=== PATIENT | female | born 1940 | race Two or more races ===

== ENCOUNTER 2016-06-30 07:08 | Inpatient (IN) | payer MEDICAID ==
[~2016-06-30] VITALS: Ht 157.5 cm; Wt 81.6 kg
[2016-06-30] MEDS ORDERED: IV LR 1000 ML 1,000 ML ONE (07:17)
[2016-06-30] MEDS ORDERED: CEFAZOLIN SODIUM/DEXTROSE,ISO 50 ML IV ONE (07:17)
[2016-06-30] MEDS ORDERED: NEEDLELESS EST SET LARGE BORE 1 EA INFUS.SET MC ONE (07:17)
[2016-06-30] MEDS ORDERED: IV SET PRIMARY 1 EA INFUS.SET MC ONE (07:17)
[2016-06-30] MEDS ORDERED: SECONDARY IV SET 1 EA INFUS.SET MC ONE ×2 (07:17→16:49)
[2016-06-30] MEDS ORDERED: LOSA50TA21 PO (07:29)
[2016-06-30] MEDS ORDERED: TRAM50TA2 PO (07:29)
[2016-06-30] MEDS ORDERED: FAMO40TA7 PO (07:29)
[2016-06-30] MEDS ORDERED: LOSA25TA13 PO (07:29)
[2016-06-30] MEDS ORDERED: BUPIVACAINE 0.5 % PF 150 MG/30 ML VIAL ONE (08:20)
[2016-06-30] MEDS ORDERED: BACITRACIN 50000 UNITS/VIAL ONE ×2 (08:20)
[2016-06-30] MEDS ORDERED: KETOROLAC TROMETHAMINE INJ 30 MG/ML VIAL ONE (08:20)
[2016-06-30 09:24] VITALS: BP 102/66
[2016-06-30] MEDS ORDERED: TRANEXAMIC ACID 3,000 MG in SODIUM CHLORIDE IRRIG SOLUTION 70 ML IR ONE (09:30)
[2016-06-30] MEDS ORDERED: CLINDAMYCIN 900 MG/6 ML VIAL ONE (09:57)
[2016-06-30] MEDS ORDERED: FENTANYL PF 100MCG/2ML AMPUL ONE (09:58)
[2016-06-30] MEDS ORDERED: HYDROMORPHONE INJ 2 MG/ML DISP.SYRIN ONE (09:58)
[2016-06-30] MEDS ORDERED: DULCOLAX 10 MG/SUPP.RECT RC PRN (13:00)
[2016-06-30] MEDS ORDERED: SENOKOT 8.6 MG TABLET PO PRN (13:00)
[2016-06-30] MEDS ORDERED: HYDROCODONE/APAP 5/325MG 1 EACH TABLET PO PRN (13:00)
[2016-06-30] MEDS ORDERED: COLACE 250 MG CAPSULE PO PRN (13:00)
[2016-06-30] MEDS ORDERED: AMBIEN 5 MG TABLET PO PRN (13:00)
[2016-06-30] MEDS ORDERED: TYLENOL 650 MG TABLET PO PRN (13:00)
[2016-06-30] MEDS ORDERED: ZOFRAN 4mg/2ML IV PRN (13:00)
--- NOTE | 2016-06-30 13:00 | NUR ---
MS RN RECEIVED A 75 YEAR OLD PATIENT, FROM OR, AWAKE,ALERT,ORIENTED X4,NOT IN ANY FORM OF DISTRESS, S/P RIGHT KNEE TKA, W/ DRESSING AND BANDAGE,LAMAS TO GRAVITY W/ YELLOWISH URINE OUTPUT, DENIES PAIN AT THIS TIME, WILL MONITOR PATIENT'S CONDITION.
[2016-06-30] MEDS ORDERED: ANESTHESIA TRAY IN PYXIS 1 EA TRAY MC ONE (14:08)
--- NOTE | 2016-06-30 15:00 | NUR ---
MS RN WAS SEEN BY PT, CPM ON AT THIS TIME.
[2016-06-30 16:00] VITALS: BP 101/55
[2016-06-30] MEDS ORDERED: IV SET PRIMARY PUMP SET 1 EA INFUS.SET MC ONE (16:34)
--- NOTE | 2016-06-30 17:05 | NUR ---
MS RN CPM OFF AT THIS TIME, GIVEN DILAUDID 1MG IV FOR PAIN 09/30, WILL MONITOR PATIENT.
[2016-06-30] MEDS: HYDROMORPHONE 1 MG/1 ML DISP.SYRIN IV PRN (17:30)
[2016-06-30] MEDS: IV LR 1000 ML 1,000 ML IV PRN (17:49)
[2016-06-30] MEDS: CLINDAMYCIN 900 MG in IV D5W 50 ML IV SCH (17:50)
[2016-06-30] MEDS ORDERED: FAMOTIDINE 40 MG TABLET PO SCH (18:00)
--- NOTE | 2016-06-30 18:15 | NUR ---
MS RN ON BED, NO DISTRESS NOTED,ALL NEEDS ATTENDED.
--- NOTE | 2016-06-30 19:00 | NUR ---
MS RN OPENING NOTES RECEIVED PATIENT IN BED, AWAKE/O X 4, IV SITE INTACT WITH NO S/S OF INFILTRATION NOTED. NO S/S OF BLEEDING NOTED. NO S/S OF DISTRESS, NO CHEST PAIN IN STABLE CONDITION. KEPT CLEAN DRY AND COMFORTABLE. SAFE HAZARD FREE ENVIRONMENT PROVIDED. WILL CONTINUE TO MONITOR PATIENT.
[2016-06-30 20:00] VITALS: BP 96/57
[2016-07-01] MEDS: CLINDAMYCIN 900 MG in IV D5W 50 ML IV SCH (01:03)
[2016-07-01] MEDS: HYDROMORPHONE 1 MG/1 ML DISP.SYRIN IV PRN ×4 (01:18→20:55)
[2016-07-01] MEDS: IV LR 1000 ML 1,000 ML IV PRN ×2 (05:10→20:55)
--- NOTE | 2016-07-01 06:28 | NUR ---
MS RN CLOSING NOTES IN BED ASLEEP AND EASILY AWAKEN, SEMI FOWLERS POSITION, ON ATB WITH NO A/R NOTED. SKIN WARM AND DRY TO TOUCH, AFEBRILE, ON O2LPM VIA NC 02 SAT 98% ALL NURSING CARE NEEDS PROVIDED AND RENDERED, NEEDS ATTENDED AND ANTICIPATED, KEPT CLEAN AND DRY AND COMFORTABLE, BLADDER NOT DISTENDED, ON FC DRAINING YELLOW VIA GRAVITY WITH NO SEDIMENTS NO HEMATURIA NO CLOUDINESS. CONTINUE WITH CURRENT MEDICATION ORDERED, NO LATE ADVERSE REACTION NOTED/REPORTED. COOPERATIVE TO HER PLAN OF CARE. SAFE HAZARD FREE ENVIRONMENT MAINTAINED. ASSISTED REPOSITIONED EVERY 2 HOURS FOR SKIN MANAGEMENT AND COMFORT. GOOD SKIN CARE PROVIDED. ALL DUE MEDS WAS GIVEN. KEPT AT LOW BED. FREQUENT VISUAL CHECK FOR SAFETY. PLAN OF CARE ORDERED. CALL LIGHT ATTENDED PROMPTLY AND KEPT AT EASY REACH. WILL ENDORSE TO THE NEXT SHIFT CONTINUE PLAN OF CARE. VS STABLE . IN STABLE CONDITION, CPM ORDERED.
[2016-07-01 07:07] LABS: BASOPHILS % (AUTO) 0.3 % (0.0-2.0); EOSINOPHILS % (AUTO) 0.2 % (0.0-6.0); HEMATOCRIT 31 % (33-45); HEMOGLOBIN 10.7 g/dL (11.5-14.8); LYMPHOCYTES # (AUTO) 1.3 /CMM (0.8-4.8); LYMPHOCYTES % (AUTO) 17.3 % (20.0-44.0); MEAN CORPUSCULAR HEMOGLOBIN 31 PG (26.0-33.0); MEAN CORPUSCULAR HGB CONC 34 g/dl (31.0-36.0); MEAN CORPUSCULAR VOLUME 91 fL (82-100); MONOCYTES # (AUTO) 0.8 /CMM (0.1-1.30); MONOCYTES % (AUTO) 10.7 % (2.0-12.0); NEUTROPHILS # (AUTO) 5.4 /CMM (1.8-8.9); NEUTROPHILS % (AUTO) 71.5 % (43.0-81.0); PLATELET COUNT (AUTO) 221 /CMM (150-450); RDW COEFFICIENT OF VARIATION 12.7 (11.5-15.0); RED BLOOD CELL COUNT(AUTO) 3.43 MIL/uL (4.0-5.2); WHITE BLOOD COUNT (AUTO) 7.5 K/uL (4.3-11.0)
--- NOTE | 2016-07-01 07:40 | NUR ---
RN OPEN NOTES RECEIVED REPORT FROM TUBING SUPERVISOR NURSE. PATIENT IS IN BED, ALERT AND ORIENTED TO NAME, TIME AND PLACE. NO SIGNS AND SYMPTOMS OF DISTRESS. BED IN LOW POSITION, LOCKED AND TWO SIDE RAILS ARE UP. WILL CONTINUE TO ASSESS AND MONITOR PATIENT THROUGH OUT MY SHIFT.
[2016-07-01 08:00] VITALS: BP 108/56
[2016-07-01] MEDS: ASPIRIN 325 MG TABLET PO SCH (08:36)
[2016-07-01] MEDS: FAMOTIDINE (20 MG) 20 MG TABLET PO SCH (08:36)
[2016-07-01] MEDS: LOSARTAN POTASSIUM 50 MG TABLET PO SCH (08:37)
[2016-07-01 16:00] VITALS: BP 98/46
--- NOTE | 2016-07-01 19:11 | NUR ---
RN CLOSING NOTES REPORT WAS GIVEN TO EXECUTIVE ADMINISTRATIVE ASSISTANT NURSEENRIQUE FOR MAK. PATIENT IS IN BED, ALERT AND ORIENTED TO NAME, TIME AND PLACE. DAUGHTER, PAM IS AT BEDSIDE. NO SIGNS AND SYMPTOMS OF DISTRESS. BED IN LOW POSITION, LOCKED AND TWO SIDE RAILS ARE UP. CPM WAS ON FOR 3 HOURS DURING THE DAY. CPM MACHINE TO BE RESUME TO AN ADDITIONAL 1-2 HOURS AFTER DILAUDID. CASE MANAGEMENT TO FOLLOW UP WITH PAM FOR MORE INFORMATION ABOUT ACUTE REHAB
[2016-07-01 20:00] VITALS: BP 98/53
--- NOTE | 2016-07-01 20:03 | NUR ---
PATIENT IN BED, ALERT AND ORIENTED X4, CALM, NO SOB, TOLERATING ROOM AIR, S/P RIGHT TKA, WILL PROVIDE PAIN MEDICATION NEEDED, LEFT HAND PERIPHERAL LINE IS PATENT AND INFUSING WELL, LAMAS CATHETER DRAINING WELL OF CLEAR AND YELLOW URINE, MADE COMFORTABLE, CALL LIGHT WITHIN REACH, DAUGHTER AT THE BEDSIDE.
[2016-07-01 22:00] VITALS: BP 112/65
[2016-07-02 02:00] VITALS: BP 112/65
[2016-07-02] MEDS: HYDROMORPHONE 1 MG/1 ML DISP.SYRIN IV PRN ×3 (04:09→20:16)
--- NOTE | 2016-07-02 04:27 | NUR ---
COMPLAINING OF PAIN TO RIGHT KNEE OF 8/10, GIVEN DILAUDID 1MG IVP PRN, WILL CONTINUE TO MONITOR.
--- NOTE | 2016-07-02 06:30 | NUR ---
PATIENT IS ALERT AND AWAKE, NO SOB, ENCOURAGED PT TO PUT 02 VIA NC, PROVIDED PAIN MEDICATION DURING SHIFT, DRESSING TO RT LEG IS INTACT, NO BLEEDING, LAMAS CATHETER DRAINING WELL, NEEDS ATTENDED, CALL LIGHT WITHIN REACH.
--- NOTE | 2016-07-02 07:20 | NUR ---
RN OPEN NOTES RECEIVED REPORT FROM JET PIERCER OPERATOR NURSE. PATIENT IS IN BED, AWAKE, ALERT AND ORIENTED TO NAME, TIME AND PLACE. NO SIGNS AND SYMPTOMS OF DISTRESS. BED IN LOW POSITION, LOCKED AND 2 SIDE RAILS ARE UP. IV SITE IS LEAKING, WILL DISCONTINUE SITE AND START A NEW ONE. PAIN LEVEL 6/10. PATIENT REFUSED 2L NC, WILL CONTINUE TO ASSESS PATIENT OXYGEN ON ROOM AIR. WILL GET A DOCTOR ORDER TO DISCONTINUE LAMAS. WILL CONTINUE TO ASSESS AND MONITOR PATIENT.
[2016-07-02 07:57] LABS: BASOPHILS % (AUTO) 0.1 % (0.0-2.0); EOSINOPHILS % (AUTO) 0.5 % (0.0-6.0); HEMATOCRIT 30 % (33-45); HEMOGLOBIN 10.4 g/dL (11.5-14.8); LYMPHOCYTES # (AUTO) 1.6 /CMM (0.8-4.8); LYMPHOCYTES % (AUTO) 20.5 % (20.0-44.0); MEAN CORPUSCULAR HEMOGLOBIN 32 PG (26.0-33.0); MEAN CORPUSCULAR HGB CONC 35 g/dl (31.0-36.0); MEAN CORPUSCULAR VOLUME 92 fL (82-100); MONOCYTES % (AUTO) 12.4 % (2.0-12.0); NEUTROPHILS # (AUTO) 5.1 /CMM (1.8-8.9); NEUTROPHILS % (AUTO) 66.5 % (43.0-81.0); PLATELET COUNT (AUTO) 192 /CMM (150-450); RDW COEFFICIENT OF VARIATION 12.9 (11.5-15.0); RED BLOOD CELL COUNT(AUTO) 3.29 MIL/uL (4.0-5.2); WHITE BLOOD COUNT (AUTO) 7.7 K/uL (4.3-11.0)
[2016-07-02 08:00] VITALS: BP 111/59
[2016-07-02 08:13] LABS: CALCIUM, SERUM 8.1 mg/dL (8.5-10.1); CREATININE 0.7 mg/dL (0.6-1.3); POTASSIUM 3.7 mmol/L (3.5-5.1)
[2016-07-02] MEDS: ASPIRIN 325 MG TABLET PO SCH (08:13)
[2016-07-02] MEDS: FAMOTIDINE (20 MG) 20 MG TABLET PO SCH (08:14)
[2016-07-02] MEDS: LOSARTAN POTASSIUM 50 MG TABLET PO SCH (08:15)
[2016-07-02 16:00] VITALS: BP 103/56
--- NOTE | 2016-07-02 18:47 | NUR ---
RN CLOSING NOTES PATIENT IS IN BED, AWAKE, ALERT AND ORIENTED TO TIME NAME AND PLACE. NO SIGNS AND SYMPTOMS OF DISTRESS. PAIN WAS CONTROLLED WITH PAIN MEDS. VITAL SIGNS ARE WITHIN ACCEPTABLE RANGE. PER DR MCGOVERN, LAMAS DISCONTINUED AND PATIENT WAS SUCCESSFULLY VOIDED. IV SITE IS INTACT AND CONTINUOUSLY FLUID IS CURRENTLY RUNNING. BED IS IN LOW POSITION, LOCKED AND 2 SIDE RAILS ARE UP. WILL ENDORSE TO TAIL TRIMMER NURSE.
--- NOTE | 2016-07-02 19:42 | NUR ---
MS/RN OPENING NOTES PATIENT AWAKE, ALERTX3. FAMILY AT BEDSIDE. ABLE TO VERBALIZE NEEDS IN [place] BUT CAN UNDERSTAND [place] . ASSIST TO AMBULATE W/ WALKER AND WITH BRACE. REMOVE CPM AT THIS TIME. WILL PROVIDE PAIN MEDICATION. REQUESTED FOR PAIN LEVEL OF 8/10 ON RIGHT LEGS. NO S/S OF SOB OR DISTRESS BUT REQUIRE ASSISTANCE FOR AMBULATIO. CALL LIGHTS WITHIN REACH. PROVIDE AND OFFERED FLUIDS. IV SITE ON RIGHT HAND. WILL CONTINUE TO MONITOR.ABLE TO URINATE.
[2016-07-02 20:00] VITALS: BP 121/51
[2016-07-03] MEDS: IV LR 1000 ML 1,000 ML IV PRN (01:53)
--- NOTE | 2016-07-03 06:49 | NUR ---
MS/RN CLOSING NOTES PATIENT IN BED. AWAKE, ALERTX3. ASSISTED AT ALL TIMES. NO S/S OF SOB OR DISTRESS. PROVIDED FLUIDS. CALL LIGHTS WITHIN REACH. WILL ENDORSE TO AM RN FOR CONTINUITY OF CARE.
[2016-07-03 07:39] LABS: BASOPHILS % (AUTO) 0.3 % (0.0-2.0); EOSINOPHILS # (AUTO) 0.1 /CMM (0.0-0.7); EOSINOPHILS % (AUTO) 0.9 % (0.0-6.0); HEMATOCRIT 31 % (33-45); HEMOGLOBIN 10.7 g/dL (11.5-14.8); LYMPHOCYTES # (AUTO) 1.1 /CMM (0.8-4.8); LYMPHOCYTES % (AUTO) 14.9 % (20.0-44.0); MEAN CORPUSCULAR HEMOGLOBIN 32 PG (26.0-33.0); MEAN CORPUSCULAR HGB CONC 35 g/dl (31.0-36.0); MEAN CORPUSCULAR VOLUME 92 fL (82-100); MONOCYTES # (AUTO) 0.8 /CMM (0.1-1.30); MONOCYTES % (AUTO) 10.8 % (2.0-12.0); NEUTROPHILS # (AUTO) 5.5 /CMM (1.8-8.9); NEUTROPHILS % (AUTO) 73.1 % (43.0-81.0); PLATELET COUNT (AUTO) 198 /CMM (150-450); RDW COEFFICIENT OF VARIATION 12.7 (11.5-15.0); RED BLOOD CELL COUNT(AUTO) 3.32 MIL/uL (4.0-5.2); WHITE BLOOD COUNT (AUTO) 7.5 K/uL (4.3-11.0)
[2016-07-03 07:55] LABS: CALCIUM, SERUM 8.2 mg/dL (8.5-10.1); CREATININE 0.8 mg/dL (0.6-1.3); POTASSIUM 3.6 mmol/L (3.5-5.1)
--- NOTE | 2016-07-03 07:57 | NUR ---
AM RN NOTES RECEIVED PT IN STABLE CONDITION, NO SOB OR DISTRESS NOTED, NO PAIN AT THIS TIME, WILL MONITOR.
[2016-07-03 08:00] VITALS: BP 103/58
[2016-07-03] MEDS: ASPIRIN 325 MG TABLET PO SCH (08:34)
[2016-07-03 08:35] VITALS: BP 103/58
[2016-07-03] MEDS: LOSARTAN POTASSIUM 50 MG TABLET PO SCH (08:35)
[2016-07-03] MEDS: FAMOTIDINE (20 MG) 20 MG TABLET PO SCH (08:35)
--- NOTE | 2016-07-03 14:40 | NUR ---
PT DISCHARGED TO [facility], IN STABLE CONDITION, NO SOB OR DISTRESS NOTED, NO PAIN NOTED, REPORT GIVEN TO [facility]T STAFF AND NURSE AT SNF, REPORTED THAT PT NEEDS STOOL SOFTENER TONIGHT, RX GIVEN TO EMT STAFF WITH ALL OTHER TRANSFER/DISCHARGE FORMES, KNEE IMMOBILIZER TAKEN WELL, EDUCATION DONE, INSTRUCTIONS GIVEN, PT LEFT UNIT SAFELY.
--- NOTE | 2016-07-03 14:45 | NUR ---
SNF NURSE MARY INFORMED ABOUT CPM ORDER, TO CONTINUE CPM AT SNF.
== END 2016-07-03 14:35 | DRG 302 ==
LOC: DS 07:08 → MED 11:46
PROVIDERS: ADMIT Specialist; ATTEND Family Medicine
PROC: 0SRC0J9 Replacement of Right Knee Joint with Synthetic Substitute, Cemented, Open Approach (ICD-10-PCS; principal; 2016-06-30 09:05)
DX: M17.11 Unilateral primary osteoarthritis, right knee (principal); D64.9 Anemia, unspecified; I10 Essential (primary) hypertension; K21.9 Gastro-esophageal reflux disease without esophagitis
CPT/HCPCS: 36415; 80048-TC; 85025-TC; 86850-TC; 86921-TC; 87081-TC; 88305-TC; 88311-TC; 97001-TC; 97110-TC; 97116-TC; 97530-TC; 97760-TC; A4217; A4606; A6402; C1713; J0690; J1100; J1170; J1885; J2405; J2704; J3010; J3490; J7060; J7120; Z7610

== ENCOUNTER 2017-04-06 05:16 | Inpatient (IN) | payer MEDICAID ==
[~2017-04-06] VITALS: Ht 157.5 cm; Wt 82.6 kg
[~2017-04-06 05:16] MED LIST: FAMO40TA7 PO; LOSA50TA21 PO; TRAM50TA2 PO
[2017-04-06] MEDS ORDERED: CELECOXIB 100 MG CAPSULE ONE (05:53)
[2017-04-06] MEDS ORDERED: CEFAZOLIN SODIUM/DEXTROSE,ISO 50 ML IV ONE (05:53)
[2017-04-06] MEDS ORDERED: oxyCODONE HCL SR 10MG TAB.SR.12H PO ONE (05:53)
[2017-04-06] MEDS ORDERED: ACETAMINOPHEN 325 MG TABLET ONE (05:54)
[2017-04-06] MEDS ORDERED: ANESTHESIA TRAY IN PYXIS 1 EA TRAY MC ONE (06:24)
[2017-04-06] MEDS ORDERED: BACITRACIN 50000 UNITS/VIAL ONE (06:24)
[2017-04-06] MEDS ORDERED: MORPHINE SULFATE/PF 10 MG/10ML (1MG/ML) AMPUL ONE (06:49)
[2017-04-06] MEDS ORDERED: TRANEXAMIC ACID 3,000 MG in SODIUM CHLORIDE IRRIG SOLUTION 70 ML IR ONE (07:00)
[2017-04-06] MEDS ORDERED: EPHEDRINE SULFATE IV 50MG VIAL ONE (08:48)
[2017-04-06] MEDS ORDERED: ZOLPIDEM TARTRATE 5 MG TABLET PO PRN (12:30)
[2017-04-06] MEDS ORDERED: DOCUSATE SODIUM 250 MG CAPSULE PO PRN (12:30)
[2017-04-06] MEDS ORDERED: ACETAMINOPHEN 325 MG TABLET PO PRN (12:30)
[2017-04-06] MEDS ORDERED: HYDROMORPHONE INJ 0.5 MG/0.5 ML SYRINGE IV PRN ×2 (12:30→20:00)
[2017-04-06] MEDS ORDERED: NALOXONE HCL 0.4 MG/ML AMPUL IV PRN (12:30)
[2017-04-06] MEDS ORDERED: HYDROCODONE/APAP 5/325MG 1 EACH TABLET PO PRN (12:30)
[2017-04-06] MEDS ORDERED: ONDANSETRON HCL/PF 4 MG/2 ML VIAL IVP PRN (12:30)
[2017-04-06] MEDS ORDERED: BISACODYL SUPP (10 MG) 10 MG/SUPP.RECT SUPP.RECT RC PRN (12:30)
[2017-04-06] MEDS ORDERED: SENNOSIDES 8.6 MG TABLET PO PRN (12:30)
[2017-04-06 15:11] LABS: BASOPHILS % (AUTO) 0.4 % (0.0-2.0); EOSINOPHILS % (AUTO) 0.3 % (0.0-6.0); HEMATOCRIT 38 % (33-45); HEMOGLOBIN 11.9 g/dL (11.5-14.8); LYMPHOCYTES # (AUTO) 1.2 /CMM (0.8-4.8); LYMPHOCYTES % (AUTO) 12.3 % (20.0-44.0); MEAN CORPUSCULAR HEMOGLOBIN 33 PG (26.0-33.0); MEAN CORPUSCULAR HGB CONC 32 g/dl (31.0-36.0); MEAN CORPUSCULAR VOLUME 103 fL (82-100); MONOCYTES # (AUTO) 0.6 /CMM (0.1-1.30); MONOCYTES % (AUTO) 6.3 % (2.0-12.0); NEUTROPHILS # (AUTO) 7.7 /CMM (1.8-8.9); NEUTROPHILS % (AUTO) 80.7 % (43.0-81.0); PLATELET COUNT (AUTO) 253 /CMM (150-450); RDW COEFFICIENT OF VARIATION 16.2 (11.5-15.0); RED BLOOD CELL COUNT(AUTO) 3.66 MIL/uL (4.0-5.2); WHITE BLOOD COUNT (AUTO) 9.5 K/uL (4.3-11.0)
[2017-04-06 15:16] LABS: CALCIUM, SERUM 7.9 mg/dL (8.5-10.1); CARBON DIOXIDE 28 mmol/L (21-32); CHLORIDE 109 mmol/L (98-107); CREATININE 0.8 mg/dL (0.6-1.3); GLUCOSE 139 mg/dL (74-106); POTASSIUM 4.1 mmol/L (3.5-5.1); SODIUM SERUM 145 mmol/L (136-145)
[2017-04-06 15:39] LABS: UREA NITROGEN, BLOOD 20 mg/dL (7-18)
[2017-04-06 16:00] VITALS: BP 102/63
[2017-04-06] MEDS: IV LR 1000 ML 1,000 ML IV PRN (17:02)
[2017-04-06] MEDS: ANCEF 1 GM/50 ML D5W IV SCH ×2 (17:08)
[2017-04-06 20:00] VITALS: BP 98/56
[2017-04-06] MEDS ORDERED: HYDROGEL DRESSING 90 GM TUBE TP SCH (21:00)
[2017-04-07] VITALS: BP 100/65
[2017-04-07] MEDS: ANCEF 1 GM/50 ML D5W IV SCH ×2 (00:21)
[2017-04-07 04:00] VITALS: BP 106/60
[2017-04-07] MEDS: IV LR 1000 ML 1,000 ML IV PRN (04:15)
[2017-04-07 07:02] LABS: CALCIUM, SERUM 7.7 mg/dL (8.5-10.1); CARBON DIOXIDE 28 mmol/L (21-32); CHLORIDE 103 mmol/L (98-107); CREATININE 0.8 mg/dL (0.6-1.3); GLUCOSE 106 mg/dL (74-106); MAGNESIUM 1.8 mg/dL (1.8-2.4); POTASSIUM 3.9 mmol/L (3.5-5.1); SODIUM SERUM 138 mmol/L (136-145); UREA NITROGEN, BLOOD 15 mg/dL (7-18)
[2017-04-07 07:04] LABS: BASOPHILS % (AUTO) 0.3 % (0.0-2.0); EOSINOPHILS # (AUTO) 0.1 /CMM (0.0-0.7); EOSINOPHILS % (AUTO) 1.1 % (0.0-6.0); HEMATOCRIT 30 % (33-45); HEMOGLOBIN 10.7 g/dL (11.5-14.8); LYMPHOCYTES % (AUTO) 18.6 % (20.0-44.0); MEAN CORPUSCULAR HEMOGLOBIN 33 PG (26.0-33.0); MEAN CORPUSCULAR HGB CONC 35 g/dl (31.0-36.0); MEAN CORPUSCULAR VOLUME 94 fL (82-100); MONOCYTES # (AUTO) 0.6 /CMM (0.1-1.30); MONOCYTES % (AUTO) 12.1 % (2.0-12.0); NEUTROPHILS # (AUTO) 3.6 /CMM (1.8-8.9); NEUTROPHILS % (AUTO) 67.9 % (43.0-81.0); PLATELET COUNT (AUTO) 193 /CMM (150-450); RDW COEFFICIENT OF VARIATION 12.9 (11.5-15.0); RED BLOOD CELL COUNT(AUTO) 3.23 MIL/uL (4.0-5.2); WHITE BLOOD COUNT (AUTO) 5.3 K/uL (4.3-11.0)
[2017-04-07 08:00] VITALS: BP 119/65
[2017-04-07 09:16] VITALS: BP 119/65
[2017-04-07] MEDS ORDERED: HYDROCODONE/APAP 5/325MG 1 EACH TABLET PO PRN (10:00)
[2017-04-07] MEDS: HYDROMORPHONE INJ 0.5 MG/0.5 ML SYRINGE IV PRN ×2 (10:38→19:55)
[2017-04-07 16:00] VITALS: BP 134/66
[2017-04-07 20:00] VITALS: BP 138/64
[2017-04-07] MEDS ORDERED: ZOLPIDEM TARTRATE 5 MG TABLET PO PRN (22:00)
[2017-04-08] MEDS: IV LR 1000 ML 1,000 ML IV PRN (03:39)
[2017-04-08 08:00] VITALS: BP 135/70
[2017-04-08] MEDS ORDERED: ASPIRIN 325 MG TABLET PO SCH (09:00)
[2017-04-08] MEDS: HYDROMORPHONE INJ 0.5 MG/0.5 ML SYRINGE IV PRN (09:45)
[2017-04-08] MEDS ORDERED: HYDR-3972 PO (11:41)
== END 2017-04-08 17:30 | DRG 302 ==
LOC: DS 05:16 → MED 09:30 → TELE 04-07 05:13 → MED 04-07 10:28
PROVIDERS: ADMIT Specialist; ATTEND Specialist
PROC: 0SRD0J9 Replacement of Left Knee Joint with Synthetic Substitute, Cemented, Open Approach (ICD-10-PCS; principal; 2017-04-06 07:25)
DX: M17.12 Unilateral primary osteoarthritis, left knee (principal); E83.51 Hypocalcemia; I10 Essential (primary) hypertension; K21.9 Gastro-esophageal reflux disease without esophagitis; K59.00 Constipation, unspecified; M54.5 Low back pain; G89.29 Other chronic pain; Z96.651 Presence of right artificial knee joint; Z88.0 Allergy status to penicillin
CPT/HCPCS: 36415; 80048-TC; 83735-TC; 84100-TC; 85025-TC; 86850-TC; 86921-TC; 87081-TC; 88305-TC; 88311-TC; 97110-TC; 97116-TC; 97530-TC; 97760-TC; A4217; A6248; A6402; C1713; J0690; J2274; J2405; J3490; J7030; J7060; J7120; L1830; Z7610